=== PATIENT | male | born 1995 | race Caucasian/White ===

== ENCOUNTER 2024-04-24 13:22 | Emergency (ER) | payer MEDICAID ==
[~2024-04-24] VITALS: Ht 195.6 cm; Wt 129.3 kg
[2024-04-24 13:32] VITALS: BP_SYST 151; PULSE 75; RESP 22; TEMP 98.3; O2SAT 98
[2024-04-24] MEDS: EPINEPHRINE HCL/PF 1 MG/ML AMP IM ONE (14:46)
[2024-04-24] MEDS ORDERED: DIPH25CA83 PO (15:51)
[2024-04-24] MEDS ORDERED: PRED20TA PO (15:51)
[2024-04-24 16:01] VITALS: BP_SYST 129; PULSE 80; RESP 22; TEMP 98.3; O2SAT 98
== END 2024-04-24 16:01 | disposition home or self-care (01) ==
LOC: SED 13:22
DX: L50.9 Urticaria, unspecified (principal)
CPT/HCPCS: 99283; 96372; J0171

== ENCOUNTER 2024-05-06 15:13 | Emergency (ER) | payer MEDICAID ==
[~2024-05-06] VITALS: Ht 195.6 cm; Wt 129.3 kg
[~2024-05-06 15:13] MED LIST: DIPH25CA83 PO; PRED20TA PO
[2024-05-06 15:23] VITALS: BP_SYST 135; PULSE 104; RESP 18; TEMP 98.6; O2SAT 97
[2024-05-06] MEDS: DEXAMETHASONE SOD PHOSPHATE 10 MG/ML VIAL IM ONE (16:51)
[2024-05-06] MEDS: ONDANSETRON 4 MG ODT TAB PO ONE (16:51)
[2024-05-06] MEDS: EPINEPHRINE HCL/PF 1 MG/ML AMP IM ONE (16:57)
[2024-05-06] MEDS ORDERED: PRED20TA PO (17:15)
[2024-05-06] MEDS ORDERED: ONDA-8 TL (17:15)
[2024-05-06] MEDS ORDERED: DIPH25CA83 PO (17:15)
[2024-05-06 17:42] VITALS: BP_SYST 131; PULSE 98; RESP 18; TEMP 98; O2SAT 98
== END 2024-05-06 17:42 | disposition home or self-care (01) ==
LOC: SED 15:13
DX: L50.9 Urticaria, unspecified (principal); T78.49XA Other allergy, initial encounter; Z79.899 Other long term (current) drug therapy; X58.XXXA Exposure to other specified factors, initial encounter
CPT/HCPCS: 99284; 96372; Q0162; J1100; J0171